=== PATIENT | female | born 1960 | race Caucasian/White ===

== ENCOUNTER → 2016-10-24 | Outpatient (CLI) | payer MEDICAID ==
--- NOTE | 2016-10-24 08:26 | MR ---
EXAMINATION TYPE: MR lumbar spine wo con DATE OF EXAM: 10/24/2016 COMPARISON: 08/04/2015 HISTORY: Low back pain TECHNIQUE: T1 and T2 axial and sagittal images of the lumbar spine are submitted. FINDINGS: There is no abnormal signal seen within the visualized spinal cord or paraspinal soft tissu es. Simple appearing hepatic cyst noted. At L1-2 there is stable mild concentric disc bulging with no canal stenosis or foraminal encroachment . At L2-3 there is Schmorl's node chronic endplate deformity L2 stable. Disc bulging noted diffusely sl ightly greater laterally to left with mild bilateral foraminal encroachment. At L3-4 there is mild degenerative disc disease with diffuse circumferential disc bulging and hypertr ophic change of the facets. Neural foramina remain patent. No Canal stenosis. At L4-5 there is hypertrophic changes of the facets and ligamentum flavum. No disc herniation or gracy l stenosis. No foraminal encroachment. At L5-S1 there is right paracentral disc bulge or focal protrusion with moderate severe hypertrophic change of the facets. Neural foramina are patent. There is mild effacement of thecal sac. Finding is stable from the previous exam. IMPRESSION: 1. Multilevel disc bulging with more focal component at L5-S1 on the right paracentrally is stable fr om the previous exam with mild effacement of thecal sac. 2. Multilevel degenerative disc disease and facet arthropathy.
== END ==
LOC: RADMRIMAIN 07:09
PROVIDERS: ATTEND Physician Assistant
DX: M51.27 Other intervertebral disc displacement, lumbosacral region (principal); M51.36 Other intervertebral disc degeneration, lumbar region; M46.86 Other specified inflammatory spondylopathies, lumbar region
CPT/HCPCS: 72148